=== PATIENT | female | born 1975 | race Hispanic/Latino ===

== ENCOUNTER 2019-12-08 15:28 | Outpatient (CLI) | payer BC ==
--- NOTE | 2019-12-12 07:48 | MMO ---
Bilateral MAMMO Bilat Screen [facility]. CLINICAL HISTORY: Patient is 44 years old and is seen for screening. The patient has no family history of breast cancer. The patient has no personal history of cancer. VIEWS: The views performed were: bilateral craniocaudal with tomosynthesis and bilateral mediolateral oblique with tomosynthesis. FILMS COMPARED: The present examination has been compared to prior imaging studies performed at [facility] on 07/14/2016, 10/14/2018 and 11/07/2018. This study has been interpreted with the assistance of computer-aided detection. MAMMOGRAM FINDINGS: The breasts are heterogeneously dense, which could obscure a lesion on mammography. There are stable benign appearing calcifications seen in both breasts. There are no suspicious masses, suspicious calcifications, or new areas of architectural distortion. IMPRESSION: THERE IS NO MAMMOGRAPHIC EVIDENCE OF MALIGNANCY. A ROUTINE FOLLOW-UP MAMMOGRAM IN 1 YEAR IS RECOMMENDED. THE RESULTS OF THIS EXAM WERE SENT TO THE PATIENT. ACR BI-RADS Category 2 - Benign finding MAMMOGRAPHY NOTE: 1. A negative mammogram report should not delay a biopsy if a dominant of clinically suspicious mass is present. 2. Approximately 10% to 15% of breast cancers are not detected by mammography. 3. Adenosis and dense breasts may obscure an underlying neoplasm. Reported by: JENNY STRICKLAND MD Electonically Signed: [id number]
== END 2019-12-08 15:29 | disposition home or self-care (01) ==
LOC: BICMAMMO 15:28 → EDUNIT# 16:00 → MERGE 16:00
PROVIDERS: ATTEND Family Medicine
DX: Z12.31 Encounter for screening mammogram for malignant neoplasm of breast (principal)
CPT/HCPCS: 77063; 77067

== ENCOUNTER 2021-01-13 13:13 | Outpatient (CLI) | payer BC | END 2021-01-13 13:14 | disposition home or self-care (01) | LOC: BICMAMMO 13:13 | PROVIDERS: ATTEND Family Medicine | DX: Z12.31 Encounter for screening mammogram for malignant neoplasm of breast (principal); R10.2 Pelvic and perineal pain; R05 Cough | CPT/HCPCS: 71046; 76856; 77063; 77067; 93976 ==

== ENCOUNTER 2021-06-03 08:43 | Outpatient (CLI) | payer BC | END 2021-06-03 08:44 | disposition home or self-care (01) | LOC: RAD 08:43 | PROVIDERS: ATTEND Internal Medicine Critical Care Medicine | DX: R06.00 Dyspnea, unspecified (principal) | CPT/HCPCS: 71046 ==

== ENCOUNTER 2023-04-30 13:04 | Outpatient (CLI) | payer OTHER | END 2023-04-30 13:05 | disposition home or self-care (01) | LOC: BICMAMMO 13:04 | PROVIDERS: ATTEND Family Medicine | DX: Z12.31 Encounter for screening mammogram for malignant neoplasm of breast (principal); S39.92XA Unspecified injury of lower back, initial encounter; R05.9 Cough, unspecified | CPT/HCPCS: 71045; 72220; 77063; 77067 ==